=== PATIENT | female | born 2000 | race Caucasian/White ===

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

== ENCOUNTER 2018-03-06 17:10 | Observation (INO) ==
[2018-03-06 18:57] LABS: Amphetamine Screen,Urine Negative ng/mL (Cutoff=1000); Barbiturate Screen,Urine Negative ng/mL (Cutoff=200); Benzodiazepines Screen,Urine Negative ng/mL (Cutoff=200); Cannabinoid Screen,Urine Negative ng/mL (Cutoff = 50); Cocaine Screen,Urine Negative ng/mL (Cutoff= 300); Creatinine,Urine 228 mg/dL; Opiate Screen,Urine Negative ng/mL (Cutoff=300); Phencyclidine Screen,Urine Negative ng/mL (Cutoff=25); Protein/Creatinine Ratio,Urine 0.16 mg/mg (0.00-0.20)
[2018-03-06 19:24] LABS: Basophils % 0.3 %; Eosinophils % 0.3 %; Hematocrit 36.5 % (35.3-44.9); Hemoglobin 11.7 g/dL (11.5-15.4); Lymphocytes # 2.2 K/mcL (0.6-4.6); Mean Corpuscular HGB Conc 32.1 g/dL (31.6-35.5); Mean Corpuscular Hemoglobin 26.2 pg (28.0-33.3); Mean Corpuscular Volume 81.7 fL (83.0-100.0); Mean Platelet Volume 11.6 fL (9.4-12.4); Monocytes % 9.4 %; Neutrophils # 7.1 K/mcL (1.6-8.9); Platelet Count 190 K/mcL (140-400); Red Blood Count 4.47 M/mcL (3.82-4.97); Red Cell Distribution Width 21.9 % (11.5-14.5)
--- NOTE | 2018-03-06 19:50 | OB/GYN Progress Note ---
Date of Encounter: 03/06/18 Time of Encounter: 19:48 - Assessment and Plan (1) 38 weeks gestation of Current Visit: Yes Status: Acute Patient admitted for observation for PIH evaluation (2) NST (non-stress test) reactive on surveillance Current Visit: Yes Status: Acute baseline 125 bpm moderate variability +15x15 accels no decels noted. Cat. 1 tracing. Subjective - Subjective Principal diagnosis: Elevated BP in office Interval history: Patient is a 17 y/o at 38w6d presents to labor and delivery from office visit for PIH evaluation. Patient had reported a headache and had elevated BPs in the office. Patient denies any visual disturbances or epigastric pain, denies contractions, LOF or VB. Patient reports +FM. Antepartum ROS: movement normal, no loss of fluid, no vaginal bleeding, no contractions Objective - Vital Signs Vital Signs: Intake and Output 03/06/18 03/06/18 03/06/18 07:59 15:59 23:59 Other: Weight 95.254 kg Patient Weight 03/06/18 23:59 Weight 95.254 kg - Exam FHR: auscultation normal, category 1 FHR comments: FHr 120 bpm moderate variability +15x15 accels no decels noted. irregular contractions. Cat. 1 tracing. Auscultation: bilateral: normal Abdomen: Present: normal appearance, gravid Comments: 2+ DTRS no clones, 1+ edema bilateral lower extremities. - Labs Labs: Abnormal lab results MCV 81.7 fL (83.0-100.0) L 03/06/18 17:36 MCH 26.2 pg (28.0-33.3) L 03/06/18 17:36 RDW 21.9 % (11.5-14.5) H 03/06/18 17:36 Urine Total Protein 36 mg/dL (1-14) H 03/06/18 18:15
[2018-03-06 20:02] LABS: Alanine Aminotransferase 12 Units/L (7-52); Aspartate Amino Transferase 21 Units/L (13-39); BUN/Creatinine Ratio 11 (6-26); Blood Urea Nitrogen 6 mg/dL (6-20); Lactate Dehydrogenase 172 Units/L (140-271); Uric Acid 4.4 mg/dL (2.3-7.6); eGFR For Non-African Americans > 60
== END 2018-03-06 20:16 | disposition home or self-care (01) ==
LOC: 1NENULAB
PROVIDERS: ADMIT Advanced Practice Midwife; ATTEND Advanced Practice Midwife

== ENCOUNTER 2018-03-14 08:00 | Observation (INO) ==
[2018-03-14] MEDS ORDERED: Famotidine 20 MG/2 ML VIAL IVP PRN (10:50)
[2018-03-14] MEDS ORDERED: Metoclopramide 10 MG/2 ML VIAL IVP PRN (10:50)
[2018-03-14] MEDS ORDERED: Naloxone 0.4 MG/ML INJ IVP PRN (10:50)
[2018-03-14] MEDS ORDERED: Ondansetron 4 MG/2 ML VIAL IVP PRN (10:50)
[2018-03-14] MEDS ORDERED: *HR* Nalbuphine 10 MG/ML AMPUL IVP PRN (10:50)
[2018-03-14] MEDS ORDERED: Ringers Solution, Lactated 1,000 ML IVC SCH (11:00)
[2018-03-14 11:22] LABS: Basophils % 0.3 %; Eosinophils % 0.4 %; Hematocrit 33.4 % (35.3-44.9); Hemoglobin 10.6 g/dL (11.5-15.4); Immature Granulocytes % 0.4 % (0-4); Lymphocytes # 1.6 K/mcL (0.6-4.6); Lymphocytes % 22.6 %; Mean Corpuscular HGB Conc 31.7 g/dL (31.6-35.5); Mean Corpuscular Hemoglobin 25.3 pg (28.0-33.3); Mean Corpuscular Volume 79.7 fL (83.0-100.0); Mean Platelet Volume 10.8 fL (9.4-12.4); Monocytes # 0.8 K/mcL (0.0-1.3); Monocytes % 11.3 %; Neutrophils # 4.5 K/mcL (1.6-8.9); Platelet Count 207 K/mcL (140-400); Red Blood Count 4.19 M/mcL (3.82-4.97); Red Cell Distribution Width 21.2 % (11.5-14.5)
[2018-03-14 11:23] LABS: Amphetamine Screen,Urine Negative ng/mL (Cutoff=1000); Barbiturate Screen,Urine Negative ng/mL (Cutoff=200); Benzodiazepines Screen,Urine Negative ng/mL (Cutoff=200); Cannabinoid Screen,Urine Negative ng/mL (Cutoff = 50); Cocaine Screen,Urine Negative ng/mL (Cutoff= 300); Opiate Screen,Urine Negative ng/mL (Cutoff=300); Phencyclidine Screen,Urine Negative ng/mL (Cutoff=25)
--- NOTE | 2018-03-25 22:06 | OB/GYN Progress Note ---
Date of Encounter: 03/14/18 Time of Encounter: 13:00 - Assessment and Plan (1) NST (non-stress test) reactive Status: Acute (2) 40 weeks gestation of Status: Acute Discharged home due to lack of room for induction. Plan to return 03/15 at 1200pm for iol. Subjective - Subjective Interval history: Pt here for elective IOL, Reports good movement, denies contractions, vaginal bleeding, or leaking of fluid. Objective - Exam FHR: auscultation normal FHR comments: reactive NST Abdomen: Present: soft, gravid - Labs Labs: Abnormal lab results Hgb 10.6 g/dL (11.5-15.4) L 03/14/18 10:45 Hct 33.4 % (35.3-44.9) L 03/14/18 10:45 MCV 79.7 fL (83.0-100.0) L 03/14/18 10:45 MCH 25.3 pg (28.0-33.3) L 03/14/18 10:45 RDW 21.2 % (11.5-14.5) H 03/14/18 10:45
== END 2018-03-14 13:07 | disposition home or self-care (01) ==
LOC: 1NENULAB 09:53 → INTOOBSV 09:53
PROVIDERS: ADMIT Obstetrics & Gynecology; ATTEND Obstetrics & Gynecology

== ENCOUNTER 2018-03-15 12:30 | Inpatient (IN) ==
--- NOTE | 2018-03-15 12:38 | OB/GYN History & Physical ---
Date of Encounter: 03/15/18 Time of Encounter: 12:35 Assessment and Plan (1) 40 weeks gestation of Current visit: Yes Status: Acute Admit for IOL GBS positive - PCN prophylaxis Patient may have nubain/epidural upon request Anticipate vaginal delivery POC per consult with Dr Chavarria (2) GBS (group B Streptococcus carrier), +RV culture, currently Current visit: Yes Status: Acute History of Present Illness Chief complaint: IOL HPI: Ms. Carmona is a 17 year old at 40 weeks and 1 days gestation that presents to labor and delivery for IOL due to postdates. She has a marginal cord insertion and reports a PPH and shoulder dystocia with her previous delivery. She reports good movement. She denies headache, vision changes , epigastric pain, and leaking of fluid/vaginal bleeding. Labs: GBS positive Blood type O neg HIV NR RPR NR Rubella Immune Varicella Immune Hep B NR Past Med Surg Social Fam HX - Past Medical History Medical history: no medical history Additional medical history: vaginal delivery 1 month ago Psychiatric history: anxiety, depression - Past Surgical History Surgical History: no surgical history - Social History Smoking Status: Never smoker Smokeless Tobacco Status: No Alcohol use: none Drug use: marijuana - Family History Father Adopted: No Living Status: Still Living Hx Family Cardiac Disorders: No Hx Family Respiratory Disorders: No Hx Family Cancer: No Hx Family GI Disorders: No Hx Family Endocrine Disorder: No Hx Family Neuromuscular Disorders: No Hx Family Neurologic Disorders: No Hx Family HEENT Disorders: No Hx Family Autoimmune Disorders: No Obstetrical History - Pregnancies : 2 Para: 1 Term: 1 : 0 Ab's: 0 Livin Medications and Allergies Gs Vitamins Tablet 1 tab PO DAILY 01/11/18 [History] Buspirone HCl [Buspar] 5 mg PO DAILY 03/06/18 [History] Ferrous Sulfate [Iron] 1 tab PO BID 03/06/18 [History] 3 Allergy/AdvReac Type Severity Reaction Status Date / Time No Known Allergies Allergy Verified 03/06/18 17:26 Review of System OB All systems PM: reviewed and no additional remarkable complaints except as stated Exam - Constitutional Constitutional: well developed, well nourished, no acute distress, average body habitus - HEENT HEENT: Normocephaly, Mucus Membranes Moist - Neck Neck exam: full ROM - Lungs Respiratory exam: CTAB - Cardiovascular Cardiovascular exam: RRR, +S1, +S2 - Abdomen Abdomen: Present: bowel sounds normal, gravid, non tender - Extremities Extremities exam: normal capillary refill, normal inspection, radial pulses palpable and symmetrical Deep Tendon Reflex Grade: 2+ Normal - Vagina Vagina: Present: normal moisture - Uterus Uterus exam: Present: normal size, normal contour - Comments Comments: Category I baseline 140 Results All other labs normal.
[2018-03-15] MEDS ORDERED: miSOPROStol 25 MCG TABLET PO PRN (12:45)
[2018-03-15] MEDS ORDERED: Naloxone 0.4 MG/ML INJ IVP PRN (12:45)
[2018-03-15] MEDS ORDERED: *HR* Nalbuphine 10 MG/ML AMPUL IVP PRN (12:45)
[2018-03-15] MEDS ORDERED: Ringers Solution, Lactated 1,000 ML IVC SCH (12:45)
[2018-03-15] MEDS ORDERED: Famotidine 20 MG/2 ML VIAL IVP PRN (12:45)
[2018-03-15] MEDS ORDERED: Metoclopramide 10 MG/2 ML VIAL IVP PRN (12:45)
[2018-03-15] MEDS ORDERED: Ondansetron 4 MG/2 ML VIAL IVP PRN (12:45)
[2018-03-15] MEDS ORDERED: Penicillin G Potassium 5,000,000 UNIT in 0.9 % Sodium Chloride Mini Bag 100 ML IVPB ONE (12:46)
[2018-03-15 13:07] LABS: Basophils % 0.3 %; Eosinophils % 0.3 %; Hematocrit 34.8 % (35.3-44.9); Hemoglobin 11.3 g/dL (11.5-15.4); Immature Granulocytes % 0.4 % (0-4); Lymphocytes # 1.7 K/mcL (0.6-4.6); Lymphocytes % 24.1 %; Mean Corpuscular HGB Conc 32.5 g/dL (31.6-35.5); Mean Corpuscular Hemoglobin 25.9 pg (28.0-33.3); Mean Corpuscular Volume 79.6 fL (83.0-100.0); Mean Platelet Volume 11.2 fL (9.4-12.4); Monocytes # 0.8 K/mcL (0.0-1.3); Monocytes % 10.8 %; Neutrophils # 4.5 K/mcL (1.6-8.9); Platelet Count 203 K/mcL (140-400); Red Blood Count 4.37 M/mcL (3.82-4.97); Red Cell Distribution Width 20.8 % (11.5-14.5); Segmented Neutrophils % 64.1 %
[2018-03-15 13:11] LABS: Amphetamine Screen,Urine Negative ng/mL (Cutoff=1000); Barbiturate Screen,Urine Negative ng/mL (Cutoff=200); Benzodiazepines Screen,Urine Negative ng/mL (Cutoff=200); Cannabinoid Screen,Urine Negative ng/mL (Cutoff = 50); Cocaine Screen,Urine Negative ng/mL (Cutoff= 300); Opiate Screen,Urine Negative ng/mL (Cutoff=300); Phencyclidine Screen,Urine Negative ng/mL (Cutoff=25)
[2018-03-15] MEDS: Penicillin G Potassium 2,500,000 UNIT in 0.9 % Sodium Chloride 100 ML IVPB SCH ×2 (17:13→21:23)
[2018-03-15] MEDS ORDERED: Oxytocin 20 units/ LR 1000 mL 20 UNIT/1,000 ML BAG IVC SCH (18:15)
--- NOTE | 2018-03-15 19:43 | OB Labor Progress Note ---
Date of Encounter: 03/15/18 Time of Encounter: 19:40 Labor Progress Note - Subjective Subjective: Patient sitting in bed comfortably. - Vital Signs Vital Signs: VSS - Cervix Cervix: 3/70/-1 - Heart Tones Heart Tones: 130 Category I - [place]: Contractions every 2-3 minutes - Plan Plan: Continue routine labor management GBS positive- PCN prophylaxis Pitocin infusing; titrate as needed for adequate labor Patient may have nubain and /or epidural upon request Consider AROM Anticipate vaginal delivery POC per consult with Dr Chavarria
--- NOTE | 2018-03-15 21:50 | Anesthesia Evaluation PreOp ---
Date of Encounter: 03/15/18 Time of Encounter: 21:38 - Past History Planned Operation: OLGA Cardiac History: Denies any Significant Hx Pulmonary History: Denies Any Significant HX CONTACT MANAGER History: Denies Any Significant HX Other Medical History: Renal (Hx kidney stones), Thyroid (Hypothyroidism), Other (depression, PIH with mild symptoms) Anesthesia History: No Prior Anesthetic Complications, Past Anesthesia (Kidney stone extraction) : Yes Alcohol Use: none Drug use: marijuana Medications and Allergies Gs Vitamins Tablet 1 tab PO DAILY 01/11/18 [History] Buspirone HCl [Buspar] 5 mg PO DAILY 03/06/18 [History] Ferrous Sulfate [Iron] 1 tab PO BID 03/06/18 [History] 3 Allergy/AdvReac Type Severity Reaction Status Date / Time No Known Allergies Allergy Verified 03/15/18 12:50 - Meds/Allergy Pre-op Review Medications Reviewed: Yes Allergies Reviewed: Yes Beta Blockers on Current Med List: No Anesthesia Results - Labs 03/15/18 12:46 Anesthesia Exam BP 139/75 P 116 R 16 T 98.2 Height: 5'4" Weight: 93.9kg NPO (# of Hours): 0 hrs Pain Scale: 0 Pain Scale Used: Numeric (1 - 10) - HEENT Pupil (Motor): Pupils equal Mallampati: II Teeth: Normal Oral Opening: Greater than 3 - CONTACT MANAGER LOC: Oriented CONTACT MANAGER Motor: Normal RUE, Normal LUE, Normal RLE, Normal LLE, Normal Face CONTACT MANAGER Sensory: Normal: RUE, LUE, RLE, LLE, Face - Cardiac Rhythm: Regular Murmur: None JVD: No Carotid Bruit: No - Pulmonary Breath Sounds: bilateral Clear Respiratory Effort: Symmetrical Anesthesia Assess/Plan ASA Score: 2 Modified [place] Scale for Level of Consciousness: Cooperative, oriented, and tranquil Anesthetic Plan: Regional Autologous Blood: Yes Monitoring Plan: Standard Monitors Recovery Plan: Other
[2018-03-16] MEDS: Penicillin G Potassium 2,500,000 UNIT in 0.9 % Sodium Chloride 100 ML IVPB SCH ×2 (01:43→05:31)
[2018-03-16] MEDS ORDERED: Naloxone 0.4 MG/ML INJ IVP PRN (02:29)
[2018-03-16] MEDS ORDERED: Bupivacaine-MPF 0.25% 10 ML VIAL EP ONE (02:29)
[2018-03-16] MEDS ORDERED: *HR* FentaNYL (PF) 100 MCG/2 ML VIAL EP ONE (02:29)
[2018-03-16] MEDS ORDERED: Ondansetron 4 MG/2 ML VIAL IVP PRN ×2 (02:29→09:22)
[2018-03-16] MEDS ORDERED: *HR* Ropivacaine/PF 0.2% 20 ML VIAL EP ONE (02:29)
[2018-03-16] MEDS ORDERED: Epidural Premix (fent/bupiv) 110 ML EP SCH (02:30)
--- NOTE | 2018-03-16 02:32 | Anesthesia Procedures ---
Date of Encounter: 03/16/18 Time of Encounter: 02:45 Procedures: Anesthesia - Epidural/Spinal Patient ID/Chart reviewed: Yes Patient examined: Yes OB Eval: Gestational age: 40.1 OB Eval: : 2 OB Eval: Hx Para: 1 OB Eval: Dilated at (cm): 4 OB Eval: Contractions: Non-stressed pattern Consent Obtained: Yes Supplemental Oxygen: None/Room Air Site Prep: Aseptic Technique, Sterile prep and drape, Povidone-Iodine 1% Patient position: upright Local Anesthetic: Lidocaine 1% Amount of Local Anesthetic used: 3 Touhy Needle Gauge: 18 Touhy Needle Depth (cm): 6 Catheter Depth at Skin (cm): 15 Test Dose (1.5% Lido + Epi): Volume given (mls): 3 Test Dose Result: Negative Loading Dose: Fentanyl (mcg): 100 Loading Dose Administered: Thru Catheter Infusion Med: 0.125% Bupivacaine w/ 2 mcg/ml Fentanyl Infusion Rate (mls/hr): [address]: Tegaderm, Tape Interspace Used: L4-L5 Loss of Resistance (JENNIFER): Yes Blood: No CSF: No Paresthesia: No Procedure: OLGA placed 1st pass in upright position without any immediate noted complications. VSS and FHT stable throughout Vitals + FHT's: 0245 BP 142/65 P 94 R 18 0305 BP 146/79 P 66 R 16 FHT 115
[2018-03-16] MEDS ORDERED: *HR* FentaNYL (PF) 100 MCG/2 ML VIAL ONE (02:39)
[2018-03-16] MEDS ORDERED: Bupivacaine-MPF 0.25% 10 ML VIAL ONE (02:40)
[2018-03-16] MEDS ORDERED: Lidocaine -MPF 1% 5 ML AMPUL ONE (02:40)
[2018-03-16] MEDS ORDERED: Lidocaine 1% 20 ML MDV ONE (02:41)
--- NOTE | 2018-03-16 04:39 | OB Labor Progress Note ---
Date of Encounter: 03/16/18 Time of Encounter: 04:15 Labor Progress Note - Subjective Subjective: Resting comfortably with epidural in place - Vital Signs Vital Signs: VSS - Cervix Cervix: 4-5/80/-1 - Heart Tones Heart Tones: 115 category 1 - [place]: Contractions every 2-3 minutes - Interventions Interventions: AROM for copious amount of clear fluid; patient and fetus tolerated well. - Plan Plan: Continue routine labor management GBS positive - PCN prophylaxis Continue pitocin titration Anticipate vaginal delivery POC per consult with Dr Chavarria
[2018-03-16] MEDS ORDERED: Methylergonovine 0.2 MG/ML AMPUL IM ONE (08:17)
[2018-03-16] MEDS ORDERED: Oxytocin 20 units/ LR 1000 mL 20 UNIT/1,000 ML BAG IVC ONE (08:17)
[2018-03-16] MEDS ORDERED: miSOPROStol 100 MCG TABLET RC STA (08:17)
--- NOTE | 2018-03-16 08:20 | OB/GYN Procedure Note ---
Delivery - Delivery Date: 03/16/18 Provider: Willy Logan (Ladi Pantoja Assisted) Intrapartum events: none Delivery induction: misoprostol Delivery augmentation: rupture of membranes, pitocin Delivery monitor: external FHT, external uterine, internal uterine Anesthesia: epidural Quantitated Blood Loss: 550 - Infant (s) Infant A Infant Delivery Date: 03/16/18 Infant Delivery Time: 07:51 Presentation: vertex Position: REYNALDO Route of delivery: Gender: Male Viability: Viable Pounds: 9 Ounces: 7 Weight Gram: 4.295 kg at 1 minute: 8 at 5 mins: 8 Shoulder Dystocia: encountered Shoulder Dystocia Maneuvers: Mirna maneuver, suprapubic pressure Shoulder dystocia time elapsed: 20 seconds Specimens collected: cord blood Placenta: spontaneous Cord: 3 umbilical vessels - Repair Episiotomy: none Laceration Description: Labial, Superficial (left superficial labial) - Complications Delivery complications: hemorrhage (550 mL resolved with cytotec, methergine, pitocin, and uterine massage) Delivery comments: Patient progressed to complete and began coached pushing to slow delivery of the head. Once head emerged, shoulders were difficult to deliver; Dr Logan called to room to assist with delivery. delivered after 20 second shoulder dystocia resolved with suprapubic pressure and Mirna. No nuchal cord and no meconium encountered. Infant placed on maternal abdomen, warmed, dried, and stimulated. Apgars 8 and 8 at one and five minutes of age. Cord double clamped and cut after pulsations ceased with assistance of father; 3 vessel cord. Placenta delivered spontaneously and appears grossly intact. Uterus was boggy and bleeding was moderate to heavy; resolved with bimanual massage, rectal cytotec, and IM methergine. EBL 550mL. Uterus firm and at U/2 with mild bleeding after resolution of aforementioned heavier bleeding. and mother stable in recovery for [address] Logan present for as previously discussed. - Disposition Mom disposition: stable in LDR disposition: stable in LDR
--- NOTE | 2018-03-16 08:46 | Operative Note ---
Date of procedure: 03/16/18 Pre-op diagnosis: Term , shoulder dystocia Post-op diagnosis: same Procedure: Normal spontaneous vaginal delivery with relief of shoulder dystocia Anesthesia: epidural Surgeon: Willy Logan Was there an land surveyor assistant present: Yes Upholsterer Assembly Line: Ladi Pantoja Estimated blood loss (cc): 500 Specimen: none Condition: stable Disposition: other Procedure in Detail: Patient is a 17-year-old female who I was called in to assist in her vaginal delivery secondary to shoulder dystocia that they have encountered. Upon arrival to the room infant's head was out and is having difficulty getting the shoulders. I gloved and proceeded to assist in delivery of the infant's shoulders. Patient was placed in Mirna maneuver with suprapubic pressure. With downward traction and Gordon corkscrew maneuvers were able to deliver the anterior then posterior shoulder. Once the shoulders were free fluid able to deliver a viable infant. Please refer to the remaining delivery note for the rest of the delivery information.
[2018-03-16] MEDS ORDERED: Oxytocin 20 units/ LR 1000 mL 20 UNIT/1,000 ML BAG IVC SCH (08:54)
[2018-03-16] MEDS ORDERED: Acetaminophen 325 MG TABLET PO PRN (08:54)
[2018-03-16] MEDS ORDERED: Measles/Mumps/Rubella Vacc 0.5 ML VIAL SQ PRN (08:54)
[2018-03-16] MEDS ORDERED: Rho Immune Globulin 1,500 UNIT SYRINGE IM PRN (08:54)
[2018-03-16] MEDS ORDERED: Prenatal Vit/FA 1 EACH TABLET PO SCH (09:00)
[2018-03-16] MEDS ORDERED: Ondansetron 4 MG/2 ML VIAL ONE (09:20)
[2018-03-16] MEDS: Ibuprofen 600 MG TABLET PO PRN (21:18)
[2018-03-17 06:55] LABS: Hematocrit 29.4 % (35.3-44.9); Mean Corpuscular HGB Conc 32.3 g/dL (31.6-35.5); Mean Corpuscular Hemoglobin 26.1 pg (28.0-33.3); Mean Corpuscular Volume 80.8 fL (83.0-100.0); Mean Platelet Volume 11.4 fL (9.4-12.4); Platelet Count 180 K/mcL (140-400); Red Blood Count 3.64 M/mcL (3.82-4.97); Red Cell Distribution Width 20.9 % (11.5-14.5)
[2018-03-17 07:14] LABS: Hemoglobin 9.5 g/dL (11.5-15.4)
[2018-03-17 07:25] LABS: Eosinophils # 0.2 K/mcL (0.0-0.6); Lymphocytes # 3.4 K/mcL (0.6-4.6); Monocytes # 0.2 K/mcL (0.0-1.3); Neutrophils # 5.7 K/mcL (1.6-8.9); Platelet Estimate Normal (Normal)
[2018-03-17] MEDS: Ibuprofen 600 MG TABLET PO PRN (08:11)
--- NOTE | 2018-03-17 09:37 | Discharge Summary ---
Date of Encounter: 03/17/18 Time of Encounter: 09:35 - Discharge Diagnosis (1) anemia Priority: Secondary Status: Acute Comments: Continue iron twice daily for 3 months (2) Vaginal delivery Priority: Primary Status: Acute Comments: Pain well controlled with by mouth pain meds Tolerating regular diet Ambulating independently Voiding independently Passing flatus, but no BM yet Lochia light Discharge home today - Discharge Medications Prescriptions: Ibuprofen [Motrin] 600 mg PO Q6HR PRN #30 tablet PRN Reason: Cramping Docusate [Colace] 100 mg PO BID #60 capsule Ferrous Sulfate 325 mg PO BID #60 tablet Home Medications: Gs Vitamins Tablet 1 tab PO DAILY 01/11/18 [History] Buspirone HCl [Buspar] 5 mg PO DAILY 03/06/18 [History] Acetaminophen [Tylenol] 650 mg PO Q6HR PRN tablet 03/17/18 [Rx] Docusate [Colace] 100 mg PO BID #60 capsule 03/17/18 [Rx] Ferrous Sulfate 325 mg PO BID #60 tablet 03/17/18 [Rx] Ibuprofen [Motrin] 600 mg PO Q6HR PRN #30 tablet 03/17/18 [Rx] Allergies/Adverse Reactions: 3 Allergy/AdvReac Type Severity Reaction Status Date / Time No Known Allergies Allergy Verified 03/15/18 12:50 Data Procedures and tests throughout hospitalization: Laboratory Tests 03/15/18 03/15/18 03/16/18 12:45 12:46 08:21 WBC 7.0 RBC 4.37 Hgb 11.3 L Hct 34.8 L MCV 79.6 L MCH 25.9 L MCHC 32.5 RDW 20.8 H Plt Count 203 MPV 11.2 Immature Gran % 0.4 Seg Neutrophils % 64.1 Lymphocytes % 24.1 Monocytes % 10.8 Eosinophils % 0.3 Basophils % 0.3 Neutrophils # 4.5 Lymphocytes # 1.7 Monocytes # 0.8 Eosinophils # 0.0 Basophils # 0.0 Platelet Estimate Urine Opiates Screen Negative Ur Barbiturates Screen Negative Ur Phencyclidine Scrn Negative Ur Amphetamines Screen Negative U Benzodiazepines Scrn Negative Urine Cocaine Screen Negative U Marijuana (THC) Screen Negative Ur Drug Screen Interp See Below Baby's Blood Type A RH NEGATIVE Mother's Blood Type O RH NEGATIVE Rhogam Indicated NO 03/17/18 05:43 WBC 9.5 RBC 3.64 L Hgb 9.5 L D Hct 29.4 L MCV 80.8 L MCH 26.1 L MCHC 32.3 RDW 20.9 H Plt Count 180 MPV 11.4 Immature Gran % Seg Neutrophils % 60.0 Lymphocytes % 36.0 Monocytes % 2.0 Eosinophils % 2.0 Basophils % Neutrophils # 5.7 Lymphocytes # 3.4 Monocytes # 0.2 Eosinophils # 0.2 Basophils # Platelet Estimate Normal Urine Opiates Screen Ur Barbiturates Screen Ur Phencyclidine Scrn Ur Amphetamines Screen U Benzodiazepines Scrn Urine Cocaine Screen U Marijuana (THC) Screen Ur Drug Screen Interp Baby's Blood Type Mother's Blood Type Rhogam Indicated Labs on day of discharge: Labs from last 24 hours 03/17/18 03/16/18 05:43 08:21 WBC 9.5 RBC 3.64 L Hgb 9.5 L D Hct 29.4 L MCV 80.8 L MCH 26.1 L MCHC 32.3 RDW 20.9 H Plt Count 180 MPV 11.4 Seg Neutrophils % 60.0 Lymphocytes % 36.0 Monocytes % 2.0 Eosinophils % 2.0 Neutrophils # 5.7 Lymphocytes # 3.4 Monocytes # 0.2 Eosinophils # 0.2 Platelet Estimate Normal Baby's Blood Type A RH NEGATIVE Mother's Blood Type O RH NEGATIVE Rhogam Indicated NO Date of admission: 03/15/18 12:30 Consults: 03/16/18 08:54 Consult to Shoe Stitcher Odd [CONS] Routine Comment: Vaginal delivery, consult needed Discharging clinician: Ladi Constantino Anticipated date of discharge: 03/17/18 - Patient Status Disposition: Home, Self-Care Condition: Good Functional capacity at discharge: independent ambulation Overall status at discharge: patient is progressing back to baseline - Discharge Instructions Follow Up With: Ladi Pantoja CNM [Advanced Practice Nurse] - - Diet and Activity Activity: increase activity as tolerated Diet: regular diet Hospital Course Procedures: Reason for admission: induction of labor, IUP at term Delivery: Episiotomy: none Laceration: none Other procedures: none complications: none Discharge diagnosis: IUP at term delivered [place] baby: male Time Attestation: Total time spent providing and/or coordinating discharge services: Time Spent: Less than 30 minutes Exam - Constitutional Vitals: Temp Pulse Resp BP Pulse Ox 97.6 F 68 16 110/67 97 03/17/18 05:32 03/17/18 05:32 03/17/18 05:32 03/17/18 05:32 03/17/18 05:32 General appearance IM: A&O X 3, no acute distress, answers questions appropriately - Respiratory Respiratory exam: Present: CTAB - Cardiovascular Cardiovascular exam IM: Present: RRR, +S1, +S2 - GI/Abdominal GI/Abdominal exam IM: normal bowel sounds, no peritoneal signs - Rectal Rectal exam: deferred - Uterine Tone: Firm Uterus Position: At Umbilicus, Midline - Extremities Exam Extremities exam IM: Present: normal capillary refill, radial pulses palpable and symmetrical - Neurological Exam Neurological exam: alert, CN II-XII intact, normal gait, oriented X3, reflexes normal, no focal deficits, strengths equal and symetr throughout - Psychiatric Additional comments: Pt reports history of PPD. We reviewed s/sx of PPD and she verbalizes understanding of when to seek help.
[2018-03-17 12:14] VITALS: BP 106/69
[2018-03-17] MEDS ORDERED: miSOPROStol 100 MCG TABLET PO ONE (13:16)
[2018-03-17] MEDS ORDERED: Methylergonovine 0.2 MG/ML AMPUL IM ONE (13:16)
== END 2018-03-17 13:17 | disposition home or self-care (01) | DRG 774 ==
LOC: 1NENULAB 12:30 → 1NENUOBS 03-16 10:49
PROVIDERS: ADMIT Advanced Practice Midwife; ATTEND Advanced Practice Midwife